=== PATIENT | female | born 1935 | race Caucasian/White ===

== ENCOUNTER 2017-11-28 12:34 | Outpatient (CLI) | payer MEDICARE | END 2017-11-28 12:35 | disposition home or self-care (01) | LOC: BICMAMMO 12:34 | PROVIDERS: ATTEND Obstetrics & Gynecology | DX: Z12.31 Encounter for screening mammogram for malignant neoplasm of breast (principal) | CPT/HCPCS: 77063; 77067 ==

== ENCOUNTER 2018-09-18 07:29 | Outpatient (CLI) | payer MEDICARE ==
--- NOTE | 2018-09-18 08:53 | CT ---
CT ABDOMEN WITH CONTRAST CT PELVIS WITH CONTRAST: DATE: 09/18/2018. HISTORY: An 82-year-old female with R19.09, right groin mass. COMPARISON: 11/09/2008. TECHNIQUE: IV injection of iodinated contrast media: Isovue 370. Oral contrast media: Administered. External marker was placed at the palpable and painful right groin mass. FINDINGS: Again noted are the multiple laminectomy defects and bilateral pedicle screws throughout most of the lumbar spine. The hardware causes streak artifact, degrading images. 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 Deep to the external marker, there is a new finding of fat stranding representing edema, in the right inguinal region. There are a few mildly enlarged right inguinal lymph nodes associated with this, b ut these were also present on the previous CT and appear similar to 2008. There is a new finding of herniation of a very small portion of the cecum, a short distance into the inguinal canal (best appreciated on coronal image 15 of 52, series 4). In the contralateral left inguinal canal, there is herniation of a short segment of ileum, involving a greater length of bowel than on the right side (coronal image 16 of 52, series 4; axial image 67 of 94, series 2). Absent uterus. Inferior position of bladder base within the pelvic cavity. No other bladder abnorma lity identified. Moderate to large amount of colonic stool. No signs of colonic diverticulitis. No small bowel dilation. Appendix not identified with certainty. Atherosclerotic calcification withou t aneurysm of abdominal aorta. No hydronephrosis. No adrenal mass. No pancreatic mass identified. Liver and spleen are normal. Lung bases are grossly clear. IMPRESSION: 1. Minimal right inguinal hernia containing a very small portion of the cecum. 2. Edema in the right inguinal canal. 3. Contralateral small left inguinal hernia containing a loop of ileum. LORNA R POS: CET
[2018-09-18] MEDS ORDERED: ISOVUE-370 76%-LOCM 1 ML ONE (13:10)
== END 2018-09-18 07:30 | disposition home or self-care (01) ==
LOC: BICCT 07:29
PROVIDERS: ATTEND Family Medicine
DX: R19.09 Other intra-abdominal and pelvic swelling, mass and lump (principal); K40.20 Bilateral inguinal hernia, without obstruction or gangrene, not specified as recurrent; R60.9 Edema, unspecified
CPT/HCPCS: 74177

== ENCOUNTER 2018-10-07 05:55 | Day surgery (SDC) | payer MEDICARE ==
[2018-09-19 13:01] VITALS: BMI 25.0
[2018-10-07] MEDS ORDERED: Fentanyl 100 MCG/2 ML VIAL ONE ×3 (06:32→11:07)
[2018-10-07] MEDS ORDERED: Ketorolac Tromethamine 30 MG/ML VIAL ONE (06:41)
[2018-10-07] MEDS ORDERED: CEFAZOLIN 2 GM/50 ML BAG ONE (06:42)
[2018-10-07] MEDS ORDERED: Bupivacaine HCl 0.5%/Epinephrine 1:200,000/PF 30 ml Vial ONE (06:52)
[2018-10-07] MEDS ORDERED: Bupivacaine/Epinephrine 0.25% 30 ML VIAL ONE (06:52)
[2018-10-07] MEDS ORDERED: SUGAMMADEX SODIUM 500 MG/5 ML VIAL ONE (10:42)
[2018-10-07] MEDS ORDERED: Sodium Chloride 0.9% 10 ML ONE (12:22)
[2018-10-07] MEDS ORDERED: Promethazine HCl 25 MG/ML VIAL ONE (12:22)
--- NOTE | 2018-10-07 14:48 | OP ---
DATE OF PROCEDURE: 10/07/2018 PREOPERATIVE DIAGNOSES: Bilateral inguinal hernia with suspected bilateral femoral hernias. POSTOPERATIVE DIAGNOSES: Bilateral inguinal hernia with suspected bilateral femoral hernias with incarcerated small bowel segment within the right femoral hernia, unsuspected ventral hernia, and extensive intraabdominal adhesions. PROCEDURES PERFORMED: Laparoscopic lysis of adhesions, robotic repair of bilateral inguinal hernias with finding of direct, indirect, and femoral hernias bilaterally. ANESTHESIA: General endotracheal. INDICATIONS: The patient is an 82-year-old white female. She presents with complaint of intermittent abdominal pain. She was found to have a right groin palpable nodular mass. CT scan reveals bilateral inguinal hernias. She was taken to the operating room at this time for robotic repair. DESCRIPTION OF OPERATION: Informed consent was obtained, the patient was taken to the operating room, where general endotracheal anesthesia was obtained with the patient supine position. Abdomen was prepped with ChloraPrep and draped in sterile fashion. Local anesthetic was infiltrated and a transverse supraumbilical incision was created through which a Veress needle was passed into the peritoneal cavity, and pneumoperitoneum established with carbon dioxide up to pressure of 15 mmHg. An attempt was made to place a 12 mm port through the same incision. When camera was passed through this port, proved to be within adhesions. I therefore created an 8-mm robotic port incision in the right lateral abdomen. Camera passed through this revealed anterior abdominal wall adhesions. A second 5 mm port was placed in the right abdomen. This was used to sharply take down all adhesions to the anterior abdominal wall. There was noted to be a hernia defect about 1 to 1.5 cm just inferior to the umbilicus and there was some incarcerated omentum within this. After all adhesions were taken down, the 12 mm port was replaced and a second 8-mm port was placed in the left abdomen. Attention was then turned inferiorly. The patient had easily visualized the left inguinal hernia. There was also a visible right inguinal hernia. There was noted to be a segment of small bowel adherent to what appeared to be the lateral right pelvic wall, but this turned out to have been a right femoral hernia. Finally, the colon was plastered to the right lateral abdominal wall/pelvic sidewall with fairly extensive adhesions. I mobilized these to the extent that I could without violating the peritoneum to gain better access to this area. Attention was turned first to the left side. A transverse peritoneal incision was created. Preperitoneal dissection was carried inferiorly. The lateral iliopubic tract was cleared. The pubic tubercle and Aravind ligament were visualized medially. When the peritoneum was dissected out of the visible hernia defects, this was recognized to comprise both a direct, indirect, and femoral hernia. All herniated tissue was dissected out of this and the defects were all carefully dissected. The iliac vessels were visualized but not injured. The epigastric vessels were, of course, also protected. The large left 3D max mesh patch was obtained and placed in the preperitoneal space. It was secured in place with 3 sutures of 3-0 Vicryl, placing one to the pubic tubercle, one to the anterior abdominal wall medial to the epigastric vessels, and one to the anterior abdominal wall lateral to the epigastric vessels. The pneumoperitoneum was then closed with a running suture of 3-0 Stratafix. Attention was turned to the right side. I first dissected the segment of small bowel that was herniated and incarcerated within the defect. With meticulous dissection, I was able to mobilize this without injuring the small intestine. I then created a mirror-image transverse peritoneal incision and dissected inferiorly in the preperitoneal space, again cleared medially and laterally. The dissection of the femoral hernia was more involved on the right than it was on the left and there were still some herniated tissue that had to be dissected out to completely clear the defect. I used a large right 3D max mesh patch, which was secured in a same fashion with good overlap medially. The peritoneum was closed using a running suture of 3-0 Stratafix. Care was taken to avoid injury to the cecum, which was lying immediately adjacent to this peritoneum. I then used a GraNee needle and 0 Vicryl suture to repair the defect in the anterior abdominal wall just inferior to the umbilicus. This was done with a [id number] suture. The fascial defect at the 12 mm port was closed with 0 Vicryl suture using a GraNee needle. All ports and instruments were removed under direct vision. Pneumoperitoneum was carefully evacuated. A 0.25% Marcaine with epinephrine was infiltrated into each port site. Skin was approximated with 4-0 Monocryl subcuticular suture. Dermabond was placed externally. There were no complications. The patient tolerated the procedure well and was taken to recovery room in stable condition. Job ID: [id number]
[2018-10-07] MEDS ORDERED: HYDROcodone/Acetaminophen 5/325 mg Tablet ONE (14:56)
--- NOTE | 2018-10-07 17:53 | EKG ---
Test Reason : PREOP Blood Pressure : / mmHG Vent. Rate : 055 BPM Atrial Rate : 055 BPM P-R Int : 180 ms QRS Dur : 122 ms QT Int : 470 ms P-R-T Axes : 060 009 024 degrees QTc Int : 449 ms Sinus bradycardia Right bundle branch block Abnormal ECG When compared with ECG of 03-MAR-2012 12:53, Right bundle branch block is now Present Confirmed by ANTHONY COLE ([id number]) on 10/07/2018 5:53:22 PM Referred By: BEBE Confirmed By:ANTHONY COLE
== END 2018-10-07 15:20 | disposition home or self-care (01) ==
LOC: SDC 05:55
PROVIDERS: ATTEND Specialist
PROC: 0YUA4JZ Supplement Bilateral Inguinal Region with Synthetic Substitute, Percutaneous Endoscopic Approach (ICD-10-PCS; principal; 2018-10-07)
PROC: 0WQF4ZZ Repair Abdominal Wall, Percutaneous Endoscopic Approach (ICD-10-PCS; 2018-10-07)
PROC: 0YUE4JZ Supplement Bilateral Femoral Region with Synthetic Substitute, Percutaneous Endoscopic Approach (ICD-10-PCS; 2018-10-07)
DX: K43.6 Other and unspecified ventral hernia with obstruction, without gangrene (principal); K40.20 Bilateral inguinal hernia, without obstruction or gangrene, not specified as recurrent; K41.30 Unilateral femoral hernia, with obstruction, without gangrene, not specified as recurrent; K41.90 Unilateral femoral hernia, without obstruction or gangrene, not specified as recurrent; K66.0 Peritoneal adhesions (postprocedural) (postinfection); M81.0 Age-related osteoporosis without current pathological fracture; K21.9 Gastro-esophageal reflux disease without esophagitis; I10 Essential (primary) hypertension; F32.9 Major depressive disorder, single episode, unspecified; H81.09 Meniere's disease, unspecified ear; H91.8X9 Other specified hearing loss, unspecified ear; Z88.6 Allergy status to analgesic agent; Z79.51 Long term (current) use of inhaled steroids; Z79.899 Other long term (current) drug therapy; Z98.1 Arthrodesis status
CPT/HCPCS: 93005; 93010; 96374; C1781; J0131; J0670; J1885; J2550; J3010